=== PATIENT | male | born 1990 | race Hispanic/Latino ===

== ENCOUNTER 2016-12-08 21:46 | Emergency (ER) | payer OTHER ==
[~2016-12-08] VITALS: Ht 175.3 cm; Wt 77.3 kg
[2016-12-09] MEDS ORDERED: HYDROmorphone HCL 1 MG/ML SYRINGE (J1170) IM ONE ×2 (01:45→03:30)
--- NOTE | 2016-12-09 03:30 | REPUSA ---
CLINICAL HISTORY: Back pain. TECHNIQUE: Multiple axial images were obtained through the L1-L2, L2-L3, L3-L4, L4-L5 and L5-S1 inter spaces. Images were also reconstructed in coronal and sagittal planes. COMMENTS: Straightening of the lumbar lordosis. Mild diffuse disc bulge at L5-S1. Associated broad-based left paracentral/posterolateral disc protrusion. Mild bilateral neural foramina narrowing. At L1-L2, L2-L3 and L3-L4 levels there are mild diffuse disc bulges. No significant spinal canal or f oramina narrowing. There is no fracture visualized. The paraspinal soft tissues are unremarkable. There are no lytic or blastic lesions. Straightening of lumbar lordosis is seen, suggesting muscular spasm. There is evidence of multilevel disk disease, demonstrated by osteophytosis ad endplate sclerosis. IMPRESSION: No acute bone pathology. Degenerative disc disease more prominent at L5-S1. Thank you for your kind referral of this patient.
[2016-12-09] MEDS ORDERED: NORCO 5/325MG TABLET (BULK FOR ED) PO ONE (04:15)
[2016-12-09] MEDS ORDERED: METHOCARBAMOL 1,000 MG/10 ML VIAL (J2800) IM ONE (04:45)
[2016-12-09 05:09] VITALS: BP 146/66
== END 2016-12-09 05:10 | disposition home or self-care (01) ==
LOC: M ED 21:46
DX: M62.830 Muscle spasm of back (principal); M51.37 Other intervertebral disc degeneration, lumbosacral region; F17.200 Nicotine dependence, unspecified, uncomplicated; Z91.89 Other specified personal risk factors, not elsewhere classified; Z88.8 Allergy status to other drugs, medicaments and biological substances
CPT/HCPCS: 72131; 96372; 99283; J1170; J2800

== ENCOUNTER 2017-09-04 15:46 | Emergency (ER) | payer OTHER ==
[2017-09-04] MEDS: MORPHINE 4 MG/ML 1ML VIAL/SYRINGE (J2270) IM (16:45)
[2017-09-04] MEDS: ONDANSETRON 4 MG ORAL DISINTEGRATING TAB (Q0162 PER 1MG) PO (16:45)
== END 2017-09-04 17:36 | disposition home or self-care (01) ==
LOC: M ED 15:46
DX: M51.27 Other intervertebral disc displacement, lumbosacral region (principal); Z88.8 Allergy status to other drugs, medicaments and biological substances; F17.210 Nicotine dependence, cigarettes, uncomplicated
CPT/HCPCS: J2270

== ENCOUNTER 2019-03-19 15:10 | Emergency (ER) | payer OTHER ==
[~2019-03-19] VITALS: Ht 180.3 cm; Wt 81.9 kg
[2019-03-19 15:10] VITALS: BP 144/83
[~2019-03-19 15:10] MED LIST: LIDO1PAD TOP; PERC5TAB12 PO
[2019-03-19] MEDS ORDERED: TIZA4CAP PO (15:18)
[2019-03-19] MEDS ORDERED: CYMB1CAP5 PO (15:18)
== END 2019-03-19 16:09 | disposition home or self-care (01) ==
LOC: M ED 15:10
DX: F41.9 Anxiety disorder, unspecified (principal); F33.9 Major depressive disorder, recurrent, unspecified; Z88.8 Allergy status to other drugs, medicaments and biological substances; Z79.891 Long term (current) use of opiate analgesic; Z79.899 Other long term (current) drug therapy

== ENCOUNTER 2019-04-13 02:57 | Emergency (ER) | payer OTHER ==
[~2019-04-13] VITALS: Ht 180.3 cm; Wt 83.7 kg
[~2019-04-13 02:57] MED LIST changes: +CYMB1CAP5 PO; +TIZA4CAP PO
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
[2019-04-13] MEDS ORDERED: LIDOCAINE W/EPINEPHRINE 1% 20ML VIAL As Ordered ONE (04:14)
[2019-04-13] MEDS ORDERED: LIDOCAINE W/EPINEPHRINE 1% 20ML VIAL SC ONE (04:15)
[2019-04-13] MEDS ORDERED: ceFAZolin SOD 1 GM in D5W MINI-BAG PLUS 50 ML IV ONE (04:45)
[2019-04-13 04:46] LABS: BASO # 0.1 10^3/uL (0.0-0.2); BASO % 0.6 % (0.0-1.0); EOS # 0.2 10^3/uL (0.0-0.5); EOS % 1.2 % (0.0-3.0); HEMATOCRIT 47.9 % (42.0-52.0); HEMOGLOBIN 16.2 g/dl (13.5-17.5); LYMPH # 1.6 10^3/uL (1.5-5.0); LYMPH % 12.4 % (24.0-44.0); MEAN CORPUSCULAR HEMOGLOBIN 32.2 pg (27.0-33.0); MEAN CORPUSCULAR HGB CONC 33.8 g/dl (32.0-36.5); MEAN CORPUSCULAR VOLUME 95.2 fl (80.0-96.0); MONO # 0.9 10^3/uL (0.0-0.8); MONO % 7.1 % (0.0-5.0); NEUTROPHILS # 9.9 10^3/uL (1.5-8.5); NEUTROPHILS % 77.9 % (36.0-66.0); PLATELET COUNT, AUTOMATED 204 10^3/uL (150-450); RED BLOOD COUNT 5.03 10^6/uL (4.30-6.10); WHITE BLOOD COUNT 12.7 10^3/uL (4.0-10.0)
[2019-04-13 05:14] LABS: BLOOD UREA NITROGEN 10 MG/DL (7-18); CALCIUM LEVEL 8.7 MG/DL (8.5-10.1); CARBON DIOXIDE LEVEL 30 MEQ/L (21-32); CHLORIDE LEVEL 109 MEQ/L (98-107); CREATININE FOR GFR 1.33 MG/DL (0.70-1.30); ETHYL ALCOHOL (ETHANOL) 0.197 % (0.000-0.010); GLOMERULAR FILTRATION RATE > 60.0 (>60); GLUCOSE, FASTING 181 MG/DL (70-100); SODIUM LEVEL 142 MEQ/L (136-145)
[2019-04-13] MEDS ORDERED: MORPHINE 2 MG/ML 1ML VIAL (J2270) IV PRN (05:15)
[2019-04-13 06:02] VITALS: BP 124/66
== END 2019-04-13 06:06 | disposition short-term general hospital (02) ==
LOC: M ED 02:57
DX: G93.89 Other specified disorders of brain (principal); S02.92XA Unspecified fracture of facial bones, initial encounter for closed fracture; S01.81XA Laceration without foreign body of other part of head, initial encounter; X99.0XXA Assault by sharp glass, initial encounter; Y92.133 Barracks on military base as the place of occurrence of the external cause; Z88.8 Allergy status to other drugs, medicaments and biological substances
CPT/HCPCS: 70450; 70486; 72125; 80048; 85025; 96365; 96375; 99284; G0480; J0690; J2270

== ENCOUNTER → 2019-06-29 | Outpatient (CLI) | payer OTHER ==
--- NOTE | 2019-07-02 07:22 | SLEEPCENT ---
DATE OF STUDY: 06/29/2019 ORDERED BY: Edward Fishman Nocturnal polysomnography was performed for evaluation of sleep physiology in this patient with history of excessive somnolence and nonrestorative sleep. 8 hours and 23 minutes of data were reviewed. There were 371 minutes of sleep identified. Sleep latency was mildly prolonged at 26.5 minutes. Rapid eye movement (REM) latency more so prolonged at 147 minutes. Sleep architecture showed some fragmentation. There was a period of wake between 2:00 and 3:15 resulting in reduced sleep efficiency of 74.5%. Three REM cycles were however seen. The patient's electrocardiogram showed a sinus rhythm with an average heart rate of 50 beats per minute. Rate ranged 44-82. Electroencephalogram (EEG) showed fairly normal waveforms for awake and sleep. There was 31 respiratory events identified of 10 seconds in duration or greater for an apnea-hypopnea index of 5. The events were primarily obstructive, 5 mixed and central apneas were noted. The events were more frequent, but not exclusive to the supine posture and not associated with sleep stage. No significant oxygen desaturations below 90% were seen. Limb leads were quiet. IMPRESSION: Mild positional obstructive sleep apnea syndrome (G47.33). Apnea-hypopnea index 5. RECOMMENDATION: Sleep position retraining for avoidance of the supine posture may be sufficient to address the patient's problem. If sleep symptoms persists, referral back to the sleep disorder center for pressure therapy should be considered.
== END ==
LOC: M SLEEP 20:00
PROVIDERS: ATTEND Physician Assistant
DX: G47.33 Obstructive sleep apnea (adult) (pediatric) (principal)